=== PATIENT | female | born 2000 | race Asian ===

== ENCOUNTER 2020-03-02 20:24 | Emergency (ER) | payer OTHER ==
[~2020-03-02] VITALS: Ht 160 cm; Wt 61.4 kg
[~2020-03-02 20:24] MED LIST: ACET100D56 PO; D ME PO
[2020-03-02 21:05] VITALS: BP 110/64
== END 2020-03-02 21:45 | disposition left against medical advice (07) ==
LOC: EMS 20:26
DX: R05 Cough (principal); Z53.21 Procedure and treatment not carried out due to patient leaving prior to being seen by health care provider

== ENCOUNTER 2022-07-07 00:51 | Emergency (ER) | payer OTHER ==
[~2022-07-07] VITALS: Ht 160 cm; Wt 54.5 kg
[~2022-07-07 00:51] MED LIST changes: -D ME PO
[2022-07-07 00:58] VITALS: BP 101/64
[2022-07-07 01:25] LABS: APPEARANCE,URINE HAZY (CLEAR); BILIRUBIN,URINE NEGATIVE (NEGATIVE); GLUCOSE, URINE (UA) NEGATIVE (NEGATIVE); KETONES,URINE TRACE mg/dL (NEGATIVE); LEUKOCYTE ESTERASE ,URINE MODERATE (NEGATIVE); NITRATE,URINE POSITIVE (NEGATIVE); OCCULT BLOOD,URINE MODERATE (NEGATIVE); PROTEIN,URINE TRACE mg/dL (NEGATIVE); SPECIFIC GRAVITIY, URINE 1.026 (1.003-1.030); UROBILINOGEN,URINE <=1.0 mg/dL (<=1.0)
[2022-07-07 01:30] LABS: BACTERIA,URINE Moderate /HPF (None Seen); RBC,URINE 0-2 /HPF (0-2); SQUAMOUS EPITHELIAL CELL,UR Few /LPF (None Seen)
== END 2022-07-07 03:51 | disposition left against medical advice (07) ==
LOC: EMS 00:54
DX: R05.9 Cough, unspecified (principal); Z53.21 Procedure and treatment not carried out due to patient leaving prior to being seen by health care provider
CPT/HCPCS: 81001; 84703; 87086; 87186; 99281; Z7502